=== PATIENT | female | born 1965 | race Caucasian/White ===

== ENCOUNTER 2017-10-25 22:33 | Emergency (ER) | payer MEDICAID ==
[2017-10-25] MEDS ORDERED: ASPIRIN 81 MG TABLET, CHEWABLE PO ONE (22:51)
--- NOTE | 2017-10-25 23:16 | RADIOLOGY REPORT (SQ) ---
EXAM DESCRIPTION: XR CHEST 1 VIEW COMPLETED DATE/TME: 10/25/2017 22:51 CLINICAL HISTORY: CP COMPARISON: None. FINDINGS: Single frontal view of the chest. The cardiomediastinal silhouette has normal size and contour. No consolidation, pneumothorax, or pleural effusion. No displaced rib fractures identified. Elevation of the right hemidiaphragm. Bilateral nipple shadows. Bilateral breast implants. Upper abdominal soft tissues are unremarkable. IMPRESSION: 1. No acute pulmonary process identified.
[2017-10-25 23:29] LABS: INTERNATIONAL RATION (INR) 0.92; PROTHROMBIN TIME 12.8 SEC (11.4-15.4)
[2017-10-25 23:31] LABS: ABSOLUTE MONOCYTES (AUTO) 0.6 10^3/uL (0.1-1.4); ABSOLUTE NEUT (AUTO) 5.7 10^3/uL (1.7-8.2); BASOPHILS % (AUTO) 0.4 % (0-2); EOSINOPHILS % (AUTO) 0.5 % (0-6); HEMATOCRIT 39.8 % (36.0-47.0); MEAN CORPUSCULAR HEMOGLOBIN 32.8 pg (27.0-33.4); MEAN CORPUSCULAR HGB CONC 35.3 g/dL (32.0-36.0); MEAN CORPUSCULAR VOLUME 93 fl (80-97); MONOCYTES % (AUTO) 8.4 % (3-13); PLATELET COUNT 226 10^3/uL (150-450); RED BLOOD COUNT 4.28 10^6/uL (3.72-5.28); RED CELL DISTRIBUTION WIDTH 13.8 % (11.5-14.0); SEGMENTED NEUTROPHILS % (AUTO) 76.7 % (42-78); TOTAL CELLS COUNTED % (AUTO) 100 %; WHITE BLOOD COUNT 7.4 10^3/uL (4.0-10.5)
[2017-10-25 23:41] LABS: ALANINE AMINOTRANSFERASE 52 U/L (9-52); ALBUMIN 4.9 g/dL (3.5-5.0); ALKALINE PHOSPHATASE 72 U/L (38-126); ANION GAP 17 (5-19); ASPARTATE AMINO TRANSFERASE 54 U/L (14-36); BILIRUBIN,DIRECT 0.3 mg/dL (0.0-0.4); BLOOD UREA NITROGEN 22 mg/dL (7-20); CALCIUM 9.7 mg/dL (8.4-10.2); CARBON DIOXIDE 26 mmol/L (22-30); CHLORIDE 102 mmol/L (98-107); CREATINE KINASE 201 U/L (30-135); GLUCOSE 209 mg/dL (75-110); POTASSIUM 3.9 mmol/L (3.6-5.0); SODIUM 145.3 mmol/L (137-145)
[2017-10-25 23:53] LABS: CREATINE KINASE MB 3.01 ng/mL (<4.55)
[2017-10-25] MEDS ORDERED: LORAZEPAM 1 MG TABLET PO ONE (23:53)
[2017-10-25 23:59] LABS: TROPONIN I < 0.012 ng/mL
--- NOTE | 2017-10-26 00:53 | EKG REPORT ---
SEVERITY:- DEFECTIVE ECG - SINUS TACHYCARDIA BASELINE ARTIFACT : Confirmed by: Jacqueline Simeon MD 26-Oct-2017 00:52:59
[2017-10-26] MEDS ORDERED: NORMAL SALINE 1000 ML 1,000 ML IV ONE (01:55)
--- NOTE | 2017-10-26 02:07 | ER Document Report ---
ED General - General Chief Complaint: Chest Pain Stated Complaint: DIFFICULTY BREATHING Time Seen by Provider: 10/25/17 23:35 Mode of Arrival: Ambulatory Information source: Patient Notes: Patient is a 52-year-old female who presents with chief complaint of nonradiating chest pain and shortness of breath. Patient reports that the symptoms started at approximately 11 AM. Patient is very anxious while giving history. Patient reports that she felt a tightness and knot in her chest as well as shortness of breath after her son left during a stressful situation this morning. Patient reports there is multiple life stressors going on. Patient with a history of anxiety and thinks this is an anxiety attack. Patient however reports that she takes diazepam for her anxiety and has not taken any today. Patient also reports that she takes thyroid medication after a hemithyroidectomy and thinks that perhaps her thyroid is off. TRAVEL OUTSIDE OF THE [place] IN LAST 30 DAYS: No - Related Data Allergies/Adverse Reactions: No Known Allergies Allergy (Verified 04/05/16 01:45) Past Medical History - General Information source: Patient - Social History Smoking Status: Current Some Day Smoker Frequency of alcohol use: None Drug Abuse: None Family History: Reviewed & Not Pertinent Endocrine Medical History: Reports: Hx Hypothyroidism GI Medical History: Reports: Hx Gastroesophageal Reflux Disease Musculoskeletal Medical History: Reports Hx Fibromyalgia Psychiatric Medical History: Reports: Hx Depression Past Surgical History: Reports: Hx Section - x1, Hx Thyroid Surgery - Nodule removed from the thyroid - Immunizations Hx Diphtheria, Pertussis, Tetanus Vaccination: Yes Review of Systems - Review of Systems Constitutional: No symptoms reported EENT: No symptoms reported Cardiovascular: See HPI Respiratory: See HPI Gastrointestinal: No symptoms reported Genitourinary: No symptoms reported Female Genitourinary: No symptoms reported Musculoskeletal: No symptoms reported Skin: No symptoms reported Hematologic/Lymphatic: No symptoms reported Neurological/Psychological: No symptoms reported Physical Exam - Vital signs Vitals: Temp Pulse Resp BP Pulse Ox 97.6 F 114 H 18 150/98 H 97 10/25/17 22:52 10/25/17 22:52 10/25/17 22:52 10/25/17 22:52 10/25/17 22:52 - Notes Notes: PHYSICAL EXAMINATION: GENERAL: Anxious, tearful. HEAD: Atraumatic, normocephalic. EYES: Pupils equal round and reactive to light, extraocular movements intact, conjunctiva are normal. ENT: Nares patent, oropharynx clear without exudates. Moist mucous membranes. NECK: Normal range of motion, supple without lymphadenopathy LUNGS: Breath sounds clear to auscultation bilaterally and equal. No wheezes rales or rhonchi. HEART: Regular rate and rhythm without murmurs ABDOMEN: Soft, nontender, nondistended abdomen. No guarding, no rebound. No masses appreciated. Female : deferred Musculoskeletal: Normal range of motion, no pitting or edema. No cyanosis. Midsternal chest pain reproducible with palpation. NEUROLOGICAL: Cranial nerves grossly intact. Normal speech, normal gait. Normal sensory, motor exams PSYCH: Normal mood, normal affect. SKIN: Warm, Dry, normal turgor, no rashes or lesions noted. Course - Re-evaluation Re-evalutation: Patient presented with chief complaint of chest pain shortness of breath that started at 11 AM. Patient reports that she feels she is having an anxiety attack because she has been going through a lot of stress in her life. Will order a chest pain workup due to patient's age and description of the pain however I feel that this chest pain is more consistent with anxiety. Patient does report that she takes diazepam for her anxiety however she denies taking any today. Will give her 1 mg of Ativan p.o. while her cardiac workup is pending. Physical exam is relatively unremarkable other than reproducible chest pain to the sternum. Patient is very anxious and tearful during my encounter with her. Patient is tachycardic, normotensive. Chest pain workup is benign. CBC, CMP, CK-MB and troponin are all unremarkable. CK mildly elevated. TSH was drawn and is in a therapeutic range. Patient continues to have tachycardia and appears very anxious despite a normal chest pain workup as well as a dose of p.o. Ativan. Will proceed with a chest CTA to rule out a pulmonary embolism. I do feel that this is unlikely as patient does not have any risk factors for same, has not had any recent travel lately does not take any hormone replacement and has not had any recent surgeries, however cannot rule this out due to patient's persistent tachycardia and anxious appearance. On my reevaluation patient is also diaphoretic now. Multiple attempts were made to gain IV access. Patient was finally sent for CAT scan where patient called out several times asking for additional Ativan. I did personally go over to CAT scan and discussed with patient the fact that the Ativan that I gave her previously did not change her symptoms that also did not feel comfortable giving her additional Ativan when it did not seem to be therapeutic. Patient verbalized understanding and is now agreeing to allow the java tech to scan her. Patient is back in the room, we are waiting results of the CTA. Heart rate is currently 105, respiratory rate of 16, pulse ox is 97%. Patient continues to ask for Ativan. Will order 1 mg Ativan IV at this time. CTA negative for any pulmonary embolism. On reevaluation patient, patient is much more calm, heart rate is 105, respiratory rate of 18. Patient is still not received her 1 L normal saline bolus so it is initiated at this time. Patient will be discharged home as soon as fluids have run-in. Patient is agreeable to this plan. Patient will follow up with both her pain management doctor as well as her electronics computer mechanic. - Vital Signs Vital signs: Temp Pulse Resp BP Pulse Ox 97.6 F 114 H 16 150/98 H 93 10/25/17 22:52 10/25/17 22:52 10/26/17 04:00 10/25/17 22:52 10/26/17 04:00 - Laboratory Result Diagrams: 10/25/17 23:10 10/25/17 23:10 Laboratory results interpreted by me: 10/25/17 10/25/17 23:10 23:10 Sodium 145.3 H BUN 22 H Glucose 209 H AST 54 H Creatine Kinase 201 H TSH 0.38 L Discharge - Discharge Clinical Impression: Tachycardia Chest pain Qualifiers: Chest pain type: unspecified Qualified Code(s): R07.9 - Chest pain, unspecified Condition: Stable Disposition: HOME, SELF-CARE Additional Instructions: Chest Pain of Unclear Cause The exact cause of your chest pain isn't clear. Fortunately, there is no evidence of a dangerous medical condition. Further testing may be required to find the source of the pain. Most often, we find that this pain is coming from the chest wall -- the muscles or rib joints in the chest. But chest pain can come from the lung and lung lining, the esophagus, the heart valves or heart lining, and even the stomach or gallbladder. Rest. Eat lightly until the pain is gone. We may prescribe medicine for pain and inflammation. You should call the physician immediately if the pain radiates to the shoulder, jaw or arms; if you start to run a fever or develop a cough; or if you develop shortness of breath, or other new or alarming symptoms. Your workup today was completely normal. Your elevated heart rate is most likely consistent with the use of Adderall. Please take your antianxiety medications as prescribed. Return to the emergency department if you develop worsening symptoms such as chest pain, shortness of breath, fever or any other symptom that is concerning to you. Referrals: LUCY CID MD [Primary Care Provider] - Follow up as needed
--- NOTE | 2017-10-26 03:36 | RADIOLOGY REPORT (SQ) ---
EXAM DESCRIPTION: CT CHEST ANGIOGRAPHY WITHOUT THEN WITH IV CONTRAST COMPLETED DATE/TME: 10/26/2017 01:35 CLINICAL HISTORY: tachycardia, chest pain. BUN22 CREAT0.72 COMPARISON: None Available. TECHNIQUE: CTA of the chest obtained before and after the uncomplicated intravenous administration of iodinated contrast. 3-D/MIP reformatted images of the chest available for evaluation. DLP: 917.54 mGycm FINDINGS: Chest: Pulmonary arteries: Contrast bolus is adequate.No filling defects identified in the pulmonary arteries to suggest pulmonary embolus. Thyroid:No abnormalities of the visualized thyroid. Great Vessels:Great vessels have normal anatomic configuration. Thoracic Aorta:No abnormalities of the thoracic aorta identified. Heart:No cardiomegaly, significant pericardial effusion, or coronary artery atherosclerosis Lymph Nodes:No enlarged mediastinal lymph nodes identified. Esophagus:No abnormalities of the esophagus identified. Other: Breast implants. Lungs:No alveolar or interstitial airspace opacities identified. Pleura:No pleural effusion or pneumothorax. Trachea/Airways:No abnormalities of the visualized trachea or airways. Bones:No destructive osseous lesions. Upper Abdomen:Limited images of the upper abdomen demonstrate no definite abnormalities of visualized portions of the gallbladder, pancreas, spleen, kidneys or adrenal glands. Decreased density of the liver. IMPRESSION: 1. No pulmonary process identified. 2. Hepatic steatosis. This exam was performed according to our departmental dose-optimization program, which includes automated exposure control, adjustment of the mA and/or kV according to patient size and/or use of iterative reconstruction technique.
[2017-10-26] MEDS ORDERED: LORAZEPAM INJ 2 MG/1 ML VIAL IV ONE (03:46)
[2017-10-26 06:29] VITALS: BP 134/91
== END 2017-10-26 05:40 | disposition home or self-care (01) ==
LOC: ER 22:33
DX: R07.9 Chest pain, unspecified (principal); R00.0 Tachycardia, unspecified; R06.02 Shortness of breath; F41.9 Anxiety disorder, unspecified; F17.200 Nicotine dependence, unspecified, uncomplicated
CPT/HCPCS: 93005; 99285; 96361; 96374; 36415; 82553; 82550; 84443; 85025; 85610; 80053; 84484; 71045; 71275; 93010; J2060; J7030

== ENCOUNTER 2019-01-21 14:47 | Emergency (ER) | payer MEDICAID ==
--- NOTE | 2019-01-21 15:01 | ER Document Report ---
ED Medical Screen (RME) - General Chief Complaint: Psych Problem Stated Complaint: PSYCH EVAL Time Seen by Provider: 01/21/19 14:57 Primary Care Provider: PAVAN VALDEZ MD [Primary Care Provider] - Follow up as needed TRAVEL OUTSIDE OF THE [place] IN LAST 30 DAYS: No - HPI Notes: 01/21/19 14:57 Patient is a 53-year-old female brought here by the crisis center for psych evaluation. There is no mental health social worker covering her at this time. Patient has not been very helpful with her history. Patient states that she is not sure why she is here. Patient believes that she may be going through withdrawal, but has been clean "for a while." When I asked her about her last us of any drugs, patient stated "what are you talking about." It seemed like patient did not remember the initial conversation of her telling us she may be in 'withdrawal' (mainly because she feels pain and not on pain meds anymore). After more questioning, she states then that she was taking oxycodone frequently for chronic pain. Patient is not tracking conversation or staying on the same topic very well. No recent illness. No fever. She has no SI/HI. No visual or auditory hallucinations. I have treated and performed a rapid initial assessment of this patient. A comprehensive ED assessment and evaluation of the patient, analysis of test results and completion of medical decision making process will be conducted by additional ED providers. GENERAL: Well-appearing, well-nourished and in no acute distress. A&Ox4. - Related Data Allergies/Adverse Reactions: No Known Allergies Allergy (Verified 04/05/16 01:45) Past Medical History Endocrine Medical History: Reports: Hx Hypothyroidism Renal/ Medical History: Denies: Hx Peritoneal Dialysis GI Medical History: Reports: Hx Gastroesophageal Reflux Disease Musculoskeltal Medical History: Reports Hx Fibromyalgia Psychiatric Medical History: Reports: Hx Depression Past Surgical History: Reports: Hx Section - x1, Hx Thyroid Surgery - Nodule removed from the thyroid - Immunizations Hx Diphtheria, Pertussis, Tetanus Vaccination: Yes Physical Exam - Vital signs Vitals: Temp Pulse Resp BP Pulse Ox 98.5 F 86 20 119/50 L 98 01/21/19 14:53 01/21/19 14:53 01/21/19 14:53 01/21/19 14:53 01/21/19 14:53 Course - Vital Signs Vital signs: Temp Pulse Resp BP Pulse Ox 98.5 F 86 20 119/50 L 98 01/21/19 14:53 01/21/19 14:53 01/21/19 14:53 01/21/19 14:53 01/21/19 14:53 Doctor's Discharge - Discharge Referrals: PAVAN VALDEZ MD [Primary Care Provider] - Follow up as needed
--- NOTE | 2019-01-21 15:14 | PSYCHOLOGICAL NOTE ---
Psych Note - Psych Note Date seen by psych provider: 01/21/19 Psych Note: patient presented to [facility] ED from [place] with concerns of withdrawal Delirium from pain medications. Patient has been voluntarily at [facility] for 4 days (since 01/17/2019). They report they have been unable to stabilize her during her withdrawal symptoms and have sent her to [facility] for medical detox assistance. Reason For Consult:Shabana Consent Permissions: Patient is alert and orientated to person, place, time and circumstance. Mood is manic with labile affect. Patient denies suicidal homicidal ideation. Delusions are absent behaviors congruent with an intact reality based presenta tion I organized and linear thought process. Eye contact is fair to poor. Conversational speech is pressured, flight of thought is noted. Attention and concentration is poor. Insight, judgment, impulse control is currently good. Diagnosis: medication induced bipolar Medication recommendations per [facility]'s contracted psychiatrist Dr. Jeanne LEBLANC are as follows Zyprexa 10mg once Cogentin 1mg Impression\plan: Patient is recommended for [facility] for overnight mental health observation. Patient reports that she attempted to go get her medications filled from her pain management however they refused to fill it and stated that she needed to go to her psychiatrist because they felt she was manic. She states she was unable to get to her outpatient provider until 01/17/2019. During that visit it was recommended she go to [facility]. She has since been detoxed off of her opiate pain medications. She confirms she continues to want to refrain from pain medication use. Unfortunately patient is demonstrating shabana with difficulty in concentration and losing her train of thought. Medication augmentations have been provided. Dr. Bermudez was consulted to care management of this patient; attending physicians in agreement with recommendations and disposition.
[2019-01-21 15:40] LABS: ABSOLUTE EOSINOPHILS # (AUTO) 0.3 10^3/uL (0.0-0.6); ABSOLUTE LYMPHOCYTES (AUTO) 1.9 10^3/uL (0.5-4.7); ABSOLUTE MONOCYTES (AUTO) 0.8 10^3/uL (0.1-1.4); ABSOLUTE NEUT (AUTO) 3.9 10^3/uL (1.7-8.2); BASOPHILS % (AUTO) 0.4 % (0-2); HEMATOCRIT 38.2 % (36.0-47.0); HEMOGLOBIN 13.1 g/dL (12.0-15.5); LYMPHOCYTES % (AUTO) 27.1 % (13-45); MEAN CORPUSCULAR HEMOGLOBIN 30.5 pg (27.0-33.4); MEAN CORPUSCULAR HGB CONC 34.2 g/dL (32.0-36.0); MEAN CORPUSCULAR VOLUME 89 fl (80-97); MONOCYTES % (AUTO) 11.6 % (3-13); PLATELET COUNT 209 10^3/uL (150-450); RED BLOOD COUNT 4.29 10^6/uL (3.72-5.28); RED CELL DISTRIBUTION WIDTH 13.4 % (11.5-14.0); SEGMENTED NEUTROPHILS % (AUTO) 56.9 % (42-78); TOTAL CELLS COUNTED % (AUTO) 100 %; WHITE BLOOD COUNT 6.8 10^3/uL (4.0-10.5)
[2019-01-21 15:58] LABS: ALBUMIN 4.2 g/dL (3.5-5.0); ALKALINE PHOSPHATASE 68 U/L (38-126); ANION GAP 10 (5-19); ASPARTATE AMINO TRANSFERASE 37 U/L (14-36); BILIRUBIN,DIRECT 0.1 mg/dL (0.0-0.4); BILIRUBIN,TOTAL 0.4 mg/dL (0.2-1.3); BLOOD UREA NITROGEN 18 mg/dL (7-20); CALCIUM 8.9 mg/dL (8.4-10.2); CARBON DIOXIDE 28 mmol/L (22-30); CHLORIDE 102 mmol/L (98-107); GLUCOSE 102 mg/dL (75-110); POTASSIUM 4.2 mmol/L (3.6-5.0)
[2019-01-21 16:00] LABS: ACETAMINOPHEN < 10 ug/mL (10-30); ALCOHOL < 10 mg/dL (NONE DETECTED); SALICYLATE < 1.0 mg/dL (2.0-20.0)
[2019-01-21 16:12] LABS: APPEARANCE,URINE SLIGHTLY-CLOUDY; BILIRUBIN,URINE NEGATIVE (NEGATIVE); COLOR,URINE YELLOW; GLUCOSE, URINE NEGATIVE (NEGATIVE); KETONES,URINE NEGATIVE (NEGATIVE); LEUKOCYTE ESTERASE,URINE NEGATIVE (NEGATIVE); NITRITE,URINE NEGATIVE (NEGATIVE); PROTEIN,URINE NEGATIVE (NEGATIVE); URINE SPECIFIC GRAVITY 1.023; UROBILINOGEN,URINE NEGATIVE mg/dL (<2.0)
[2019-01-21 16:23] LABS: URINE AMPHETAMINES SCREEN NEGATIVE; URINE BARBITURATES SCREEN NEGATIVE; URINE BENZODIAZEPINES SCREEN NEGATIVE; URINE COCAINE SCREEN NEGATIVE; URINE MARIJUANA (THC) SCREEN UNCONFIRMED POSITIVE; URINE METHADONE SCREEN NEGATIVE; URINE PHENCYCLIDINE SCREEN NEGATIVE
[2019-01-21 17:48] LABS: FREE T3 4.3 pg/mL (2.77-5.27); FREE T4 (FREE THYROXINE) 1.75 ng/dL (0.78-2.19)
--- NOTE | 2019-01-21 17:52 | ER Document Report ---
Entered by ALIYAH PEREIRA SCRIBE 01/21/19 1714 Acting as scribe for:BRANNON GARCIA MD ED Psych Disorder / Suicide - General Chief Complaint: Psych Problem Stated Complaint: PSYCH EVAL Time Seen by Provider: 01/21/19 14:57 Primary Care Provider: PAVAN VALDEZ MD [ACTIVE STAFF] - Follow up as needed Mode of Arrival: Ambulatory Information source: Patient Notes: Patient is a 53-year-old female who presents to the emergency department today complaining of "pain all over". Patient was brought over from the [facility], when asked why, patient states she doesn't know. Patient takes oxycodone 15 mg Q 4 hrs for a few years. She is reportedly on this medication because of her fibromyalgia. On January 13 when she went to get her scheduled refill, her pain management doctor told her that he would not write her anymore prescriptions and that she needed to see psychiatry. When asking the patient why she thought that the doc tor stop prescribing medication, she states "I do not know I patted him on the back and he did not want me to touch him I guess". Patient states she is "not good" saying she "hurts all over so much that she cannot stand it". Patient has no other complaints. She was reportedly sent here from the [facility] for opiate withdrawal symptoms for the last several days that are getting worse. I did speak with the patient's son Henry Franco who takes her to her doctor's appointments. He tells me that he took her to see her pain management doctor on 12/14/2018 for her medication refill and that along the way she was "out of it". When asked him to be more specific, he stated she was making no sense, seemed drowsy, seemed confused. He did not have a clear explanation for why her pain medicine was not refilled on that visit, but the doctor said he wanted her to see a psychiatrist first. She did go to her psychiatry office at [facility] on 01/17/2019 and saw her provider who sent her over to the [facility] for opioid detoxification. He did not know this occurred until he got a call from the [facility] to let him know his mother was there. In talking with the patient and her son, I was not able to determine specifically why she was abruptly stopped from receiving her oxycodone. Reviewing prior visits, and obtaining unsubstantiated history from independent outside sources, I suspect the patient has bipolar manic disorder that has been covered up by high dose opiates for quite some time. Reviewing the [place] controlled substance database I did find that she was receiving Adderall, last prescribed 10/12/2018 and it appears to have been stopped. She was also receiving diazepam regularly, it appears that her dose was tapered in late 2017 with her last dose filled on 03/22/2018. TRAVEL OUTSIDE OF THE [place] IN LAST 30 DAYS: No - Related Data Allergies/Adverse Reactions: No Known Allergies Allergy (Verified 04/05/16 01:45) Past Medical History - General Information source: Patient, [facility] Records - Social History Smoking Status: Never Smoker Cigarette use (# per day): No Chew tobacco use (# tins/day): No Smoking Education Provided: No Frequency of alcohol use: Occasional Drug Abuse: Marijuana, Prescription drugs Occupation: Unemployed Lives with: Family Family History: Reviewed & Not Pertinent Patient has suicidal ideation: No Patient has homicidal ideation: No Endocrine Medical History: Reports: Hx Hypothyroidism GI Medical History: Reports: Hx Gastroesophageal Reflux Disease Musculoskeletal Medical History: Reports Hx Fibromyalgia Psychiatric Medical History: Reports: Hx Anxiety, Hx Depression Past Surgical History: Reports: Hx Section - x1, Hx Thyroid Surgery - Nodule removed from the thyroid - Immunizations Hx Diphtheria, Pertussis, Tetanus Vaccination: Yes Review of Systems - Review of Systems Constitutional: See HPI, Other - pain all over EENT: No symptoms reported Cardiovascular: No symptoms reported Respiratory: No symptoms reported Gastrointestinal: No symptoms reported Genitourinary: No symptoms reported Female Genitourinary: No symptoms reported Musculoskeletal: Back pain, Neck pain Skin: No symptoms reported Hematologic/Lymphatic: No symptoms reported Neurological/Psychological: No symptoms reported -: Yes All other systems reviewed and negative Physical Exam - Vital signs Vitals: Temp Pulse Resp BP Pulse Ox 98.5 F 86 20 119/50 L 98 01/21/19 14:53 01/21/19 14:53 01/21/19 14:53 01/21/19 14:53 01/21/19 14:53 - General General appearance: Appears well, Alert, Anxious - HEENT Head: Normocephalic, Atraumatic Eyes: Normal Pupils: PERRL Neck: Normal - Respiratory Respiratory status: No respiratory distress Breath sounds: Normal - Cardiovascular Rhythm: Regular Heart sounds: Normal auscultation Murmur: No - Abdominal Inspection: Normal - Back Back: Tender - Extremities General upper extremity: Normal inspection General lower extremity: Normal inspection - Neurological Neuro grossly intact: Yes - Psychological Associated symptoms: Anxious, Manic - Hypomanic - Skin Skin Temperature: Warm Skin Moisture: Dry Skin Color: Normal Course - Re-evaluation Re-evalutation: 01/21/19 18:58 Patient was seen by Jed Domingo from the behavioral health department, and she agrees with my assessment of probable bipolar disorder and hypomanic. - Vital Signs Vital signs: Temp Pulse Resp BP Pulse Ox 98.5 F 86 20 119/50 L 98 01/21/19 14:53 01/21/19 14:53 01/21/19 14:53 01/21/19 14:53 01/21/19 14:53 - Laboratory Result Diagrams: 01/21/19 15:05 01/21/19 15:05 Laboratory results interpreted by me: 01/21/19 15:05 AST 37 H Salicylates < 1.0 L Acetaminophen < 10 L Discharge - Discharge Clinical Impression: Bipolar disorder, current episode hypomanic, Opioid dependence with withdrawal Condition: Stable Disposition: PSYCH HOSP/UNIT Referrals: LUCY CID MD [COMMUNITY BASED STAFF] - Follow up as needed Scribe Attestation: 01/21/19 18:45 I personally performed the services described in the documentation, reviewed and edited the documentation which was dictated to the scribe in my presence, and it accurately records my words and actions. I personally performed the services described in the documentation, reviewed and edited the documentation which was dictated to the scribe in my presence, and it accurately records my words and actions.
[2019-01-21 18:01] LABS: THYROID STIMULATING HORMONE 1.2 uIU/mL (0.47-4.68)
[2019-01-21] MEDS ORDERED: OLANZAPINE 5 MG TABLET PO ONE (18:18)
[2019-01-21] MEDS ORDERED: BENZTROPINE MESYLATE 1 MG TABLET PO ONE (18:18)
[2019-01-21] MEDS: GABAPENTIN 300 MG CAPSULE PO SCH ×2 (18:41→23:45)
--- NOTE | 2019-01-21 21:20 | EKG REPORT ---
SEVERITY:- OTHERWISE NORMAL ECG - SINUS RHYTHM BORDERLINE LEFT AXIS DEVIATION NONSPECIFIC ST-T CHANGES- INFERIOR LEADS : Confirmed by: Fran Wilkins MD 21-Jan-2019 21:20:23
[2019-01-22] MEDS: GABAPENTIN 300 MG CAPSULE PO SCH ×3 (06:44→21:03)
[2019-01-22] MEDS: DULOXETINE HCL 30 MG CAPSULE.DR PO SCH (08:12)
[2019-01-22] MEDS: OLANZAPINE 5 MG TABLET PO SCH ×2 (10:00→17:53)
[2019-01-22] MEDS: LEVOTHYROXINE SODIUM 0.075 MG TABLET PO SCH (10:01)
--- NOTE | 2019-01-22 11:15 | ER Document Report ---
Doctor's Note Notes: 01/22/19 11:15 S: Patient is being held in the emergency department for the past day for complaints of rony and opioid withdrawal syndrome. She was sent over by [facility]. She states that she has been on oxycodone for about 7 years and she was denied a refill in December. Her supervisor painting department told her that she needed to see a psychiatrist. She did go see a psychiatrist and a asked for her to go to [facility]. She did go to [facility] but they found that she had pressured speech and felt like she was in acute opioid withdrawal. She was sent here for further evaluation. Today she states that she is feeling a little bit better but still is anxious. She denies any SI, HI, hallucinations. O: Constitutional: In no acute distress. Appears anxious. Cardiac: Regular rate and rhythm. No murmurs rubs or gallops. Respiratory: No acute respiratory distress. Lungs are clear to auscultation bilaterally. No wheezes, rhonchi, or rales Abdomen: Soft, nontender, nondistended. Bowel sounds are normal. Skin: No rash, no diaphoresis Psych: Pressured speech, anxious. Denies SI, HI, hallucinations. Does admit that she feels anxious. Neuro: Cranial nerves II through XII are intact. No pronator drift. No leg drift. Normal [id number] bilaterally. Alert and oriented x3. No edvin tremors. No nystagmus. A: Patient in the emergency department for rony and possible acute opioid withdrawal. On my exam she has pressurized speech and is slightly labile. She is definitely anxious. She was started on Zyprexa and Cogentin and she has gotten her medicine this morning. And we are pending further evaluation and disposition from psych. Advised that I would follow-up with her on patient after plan discussed. P: Pending disposition from psych 01/22/19 13:57 Discussed patient further with Kevin with Behavioral Health. She has rounded on her this AM. She is still pressured in her speech and anxious. We will continue to monitor patient overnight. Patient agrees with this plan.
[2019-01-22] MEDS ORDERED: LIDOCAINE 2% VISCOUS SOLN 20 ML UDCUP PO ONE ×2 (16:08→19:50)
[2019-01-22] MEDS ORDERED: MAG HYDROX/AL HYDROX/SIMETH SUSP 30 ML UDCUP PO ONE (16:08)
[2019-01-22] MEDS: PANTOPRAZOLE SODIUM 20 MG TABLET.DR PO SCH (16:19)
--- NOTE | 2019-01-22 16:19 | PSYCHOLOGICAL NOTE ---
Psych Note - Psych Note Date seen by psych provider: 01/22/19 Time seen by psych provider: 09:30 Psych Note: Reason For Consult:Shabana Consent Permissions: not provided Patient is alert and orientated to person, place, time and circumstance. Mood is manic with labile affect. Patient denies suicidal homicidal ideation. Delusions are absent behaviors congruent with an intact reality based presentation I organized and linear thought process. Eye contact is fair to poor. Conversational speech is still slightly pressured. Attention and concentration is fair. Insight, judgment, impulse control is currently good. Diagnosis: medication induced bipolar Medication recommendations per [facility]'s contracted psychiatrist Dr. Jeanne LEBLANC are as follows Zyprexa 10mg once Cogentin 1mg Impression\plan: Patient is recommended for continued voluntary overnight mental health observation. Patient has demonstrated improvement however still is manic. Patient has difficulty with attention and concentration and identifies high level of anxiety. She was able to appropriately engaged in plan of care and requests continued treatment at [facility] as [facility] has caused a higher level of anxiety. She reports other patients are very different from her situation with her detox and is overwhelmed by the noise and others at that facility. Patient will be reevaluated with probable discharge tomorrow. Dr. Bermudez was consulted to care management of this patient; attending physicians in agreement with recommendations and disposition.
[2019-01-22] MEDS ORDERED: SUCRALFATE 1 GM TABLET PO ONE (19:49)
[2019-01-23] MEDS: GABAPENTIN 300 MG CAPSULE PO SCH ×3 (06:44→21:13)
[2019-01-23] MEDS: DULOXETINE HCL 30 MG CAPSULE.DR PO SCH (08:00)
[2019-01-23] MEDS: OLANZAPINE 5 MG TABLET PO SCH ×2 (09:15→18:05)
[2019-01-23] MEDS: LEVOTHYROXINE SODIUM 0.075 MG TABLET PO SCH (09:15)
[2019-01-23] MEDS: PANTOPRAZOLE SODIUM 20 MG TABLET.DR PO SCH (09:15)
[2019-01-23] MEDS ORDERED: MAG HYDROX/AL HYDROX/SIMETH SUSP 30 ML UDCUP PO ONE ×2 (10:20→18:40)
[2019-01-23] MEDS ORDERED: LIDOCAINE 2% VISCOUS SOLN 20 ML UDCUP PO ONE ×2 (10:20→18:40)
[2019-01-23] MEDS ORDERED: BENZTROPINE MESYLATE 1 MG TABLET PO SCH (12:56)
--- NOTE | 2019-01-23 17:00 | ER Document Report ---
Doctor's Note Notes: 01/23/19 16:54 S: 53-year-old female in the emergency for further evaluation for anxiety disorder and opiate dependency disorder. She states that she was feeling better today. she was sent by [facility] 2 days ago for concerns for an acute opioid delirium. It became apparent that she was having episodes of shabana. She has been given medicine here and has improved over the past 2 days. Today Cogentin was added to her regimen. Discussed patient with behavioral team. They would like to keep patient in the department for another night. She has an appointment with her physician tomorrow and we will attempt to help coordinate that visit. She denies SI, HI, hallucinations. O: Constitutional: Alert, in no acute distress Cardiac: Regular rate and rhythm. No murmurs rubs or gallops Respiratory: Lungs are clear to auscultation bilaterally. No wheezes rhonchi or rales Abdomen: Soft, nontender, nondistended. Normal bowel sounds Skin: No rash, no diaphoresis Neuro: Cranial nerves II through XII are intact. No pronator drift. No leg drift. Patient is alert and oriented to person place and time. Psych: patient with pressured speech -- not nearly as anxious as yesterday. denies SI, HI, hallucinations. A/P: Shabana, opiod use disorder. Patient improved today. Plan to keep in the department and help coordinate her discharge with outpatient physician tomorrow.
--- NOTE | 2019-01-23 18:35 | PSYCHOLOGICAL NOTE ---
Psych Note - Psych Note Date seen by psych provider: 01/23/19 Time seen by psych provider: 08:35 Psych Note: Date seen by psych provider: 01/23/19 Time seen by psych provider: 08:35 Psych Note: Reason For Consult:Shabana Consent Permissions: not provided Conducted check in on patient. Patient reported "doing better," however expressed an increase in anxiety due to being in a hospital setting. Patient identified son as a source of support, however son is unable to take the day off from work tomorrow to take patient to her primary care physician appointment. Patient stated she would "take a cab to her appointment to get out of here." Patient is alert and orientated to person, place, time and circumstance. Mood is manic with stable affect. Patient denies suicidal homicidal ideation. Delusions are absent behaviors congruent with an intact reality based presentation (ie:organized and linear thought process). Eye contact is good. Conversational speech is still slightly pressured. Attention and concentration is good Insight, judgment, impulse control is currently good. Diagnosis: medication induced bipolar Medication recommendations per [facility]'s contracted psychiatrist Dr. Jeanne LEBLANC are as follows Add Cogentin 1MG 1x daily Impression/Plan: Patient is cleared from acute psychiatric services. Patient does not meet IVC criteria per [place] GS 122C. At this time, patient is demonstrating some insight and judgment into her current situation. Plan is to discharge patient tomorrow. ED staff is currently exploring transportation options, to include obtaining a cab voucher. Medication recommendation have been provided. Dr. Bermudez was consulted on the care and management of this patient; attending physician is in agreement with recommendations and disposition.
[2019-01-23] MEDS ORDERED: DICYCLOMINE HCL 20 MG TABLET PO ONE (22:33)
[2019-01-24 05:59] VITALS: BP 135/79
[2019-01-24] MEDS: GABAPENTIN 300 MG CAPSULE PO SCH (07:03)
== END 2019-01-24 07:45 | disposition home or self-care (01) ==
LOC: ER 14:47
DX: F31.11 Bipolar disorder, current episode manic without psychotic features, mild (principal); F11.20 Opioid dependence, uncomplicated; E03.9 Hypothyroidism, unspecified
CPT/HCPCS: 93005; 36415; 84439; 80307 ×4; 84443; 85025; 80053; 81001; 84481; 93010; J3490 ×3